=== PATIENT | male | born 1995 | race Caucasian/White ===

== ENCOUNTER 2021-05-17 10:19 | Emergency (ER) | payer BC, OTHER ==
[2021-05-17 10:33] VITALS: BP 124/70; PULSE 88; TEMP 98.1; BMI 28.7
[2021-05-17] MEDS ORDERED: KETOROLAC TROMETHAMINE 30 MG/1 ML VIAL IM ONE (11:09)
[2021-05-17] MEDS ORDERED: KETOROLAC TROMETHAMINE 30 MG/1 ML VIAL ONE (11:18)
== END 2021-05-17 11:21 | disposition home or self-care (01) ==
LOC: JERFT 10:19
PROC: 3E0233Z Introduction of Anti-inflammatory into Muscle, Percutaneous Approach (ICD-10-PCS; principal; 2021-05-17)
DX: M54.50 Low back pain, unspecified (principal); V89.2XXA Person injured in unspecified motor-vehicle accident, traffic, initial encounter; Y92.9 Unspecified place or not applicable
CPT/HCPCS: 99283-25